=== PATIENT | male | born 1965 | race Caucasian/White ===

== ENCOUNTER 2017-03-25 05:48 | Inpatient (IN) | payer OTHER ==
[2017-03-25] VITALS (9 sets, daily range): BP systolic 92–120; BP diastolic 62–87
--- NOTE | 2017-03-25 06:30 | NUR ---
MS RN INITIAL NOTES PT ARRIVED TO UNIT FOR LEFT KNEE SX. AMBULATORY. A/O X4 ABLE TO MAKE NEEDS KNOWN. NO SIGNS OF SOB OR DISTRESS. BREATHING EVENLY AND UNLABORED ON RA. CONSENTS FOR SURGERY OBTAINED. SURGICAL PREP ENDORSED TO DAY SHIFT. BED IS IN LOW AND LOCKED POSITION, CALL LIGHT WITHIN REACH. WILL ENDORSE TO DAYSHIFT
--- NOTE | 2017-03-25 08:00 | NUR ---
m/s coal and ash supervisor: initial assessment received pt in bed awake, a/ox4. pt remains npo, pt for surgery today with dr. larsen for arthrotomy of the left knee with removal of screws proximal tibia. at bedside. will continue to monitor.
--- NOTE | 2017-03-25 08:40 | NUR ---
m/s plate conditioner: notes taken to surgery at this time via bed accompanied by o.r. staff.
[2017-03-25] MEDS ORDERED: HYDROMORPHONE INJ 2 MG/ML DISP.SYRIN ONE (09:29)
[2017-03-25] MEDS ORDERED: BACITRACIN 50000 UNITS/VIAL ONE (09:55)
[2017-03-25] MEDS ORDERED: BUPIVACAINE 0.25% 75 MG/30 ML VIAL ONE (09:55)
[2017-03-25] MEDS ORDERED: HYDROMORPHONE 1 MG/1 ML DISP.SYRIN ONE (10:22)
--- NOTE | 2017-03-25 11:00 | NUR ---
m/s direct mail clerk: notes received pt from recovery room with dx: s/p left knee arthrotomy with removal of screws proximal tibia. junior wrap dressing in place. pt is fwb on lle and pt aware. pt for d'c home this afternoon. vss. afebrile. no c/o pain or any discomfort. no apparent distress noted. on o2 at 1l/min via n/c. will continue to monitor. at bedside.
[2017-03-25] MEDS ORDERED: TICA90TA PO (11:10)
[2017-03-25] MEDS ORDERED: ATOR80TA PO (11:10)
[2017-03-25] MEDS ORDERED: ASPI81TA2 PO (11:10)
[2017-03-25] MEDS ORDERED: LOSA25TA13 PO (11:10)
--- NOTE | 2017-03-25 12:22 | NUR ---
m/s artificial plastic eye maker: notes pt c/o pain (left knee). dr. larsen notified with order to give norco 10/325mg po q4hrs prn. order read back and carried out and acknowledged. radha (pharmacist) notified to verify order.
--- NOTE | 2017-03-25 12:26 | NUR ---
m/s notes c/o /10 left knee pain, medicated with norco 10/325mg po as ordered. remains at bedside. instructed to call for assistance.
[2017-03-25] MEDS ORDERED: HYDROCODONE/APAP 10/325MG 1 EA TABLET PO PRN (12:30)
--- NOTE | 2017-03-25 13:26 | NUR ---
m/s solution professional: notes pt verbalized relief of pain. left lower leg dressing clean and dry. pt for d'c home today. at bedside. will continue to monitor.
--- NOTE | 2017-03-25 14:00 | NUR ---
m/s adoption agent: notes vital signs remains stable. pt met the criteria for discharge home. will d'c pt in an hour. remains at bedside. will continue to monitor.
--- NOTE | 2017-03-25 15:00 | NUR ---
m/s country printer apprentice: d'c instructions pt remains stable, afebrile. vss. discharged instructions with prescriptions given to pt and verbalized understanding. h/l removed with tip intact with no bleeding, no redness, and no swelling noted.
--- NOTE | 2017-03-25 15:18 | NUR ---
m/s zinc miner: discharged discharged home in stable condition via private car accompanied by .
[2017-03-25] MEDS ORDERED: Medication Not On Formulary EA (Atorvastatin Calcium (Lipitor) 80 MG) PO SCH (22:00)
[2017-03-26] MEDS ORDERED: LOSARTAN POTASSIUM 25 MG TABLET PO SCH (09:00)
[2017-03-26] MEDS ORDERED: ASPIRIN 81 MG TAB.CHEW PO SCH (09:00)
== END 2017-03-25 15:33 | disposition home or self-care (01) | DRG 489 ==
LOC: DS 05:48 → MED 05:50
PROVIDERS: ADMIT Specialist; ATTEND Specialist
DX: T84.093A Other mechanical complication of internal left knee prosthesis, initial encounter (principal); E78.5 Hyperlipidemia, unspecified; I10 Essential (primary) hypertension; M65.861 Other synovitis and tenosynovitis, right lower leg; Y92.009 Unspecified place in unspecified non-institutional (private) residence as the place of occurrence of the external cause; Y83.1 Surgical operation with implant of artificial internal device as the cause of abnormal reaction of the patient, or of later complication, without mention of misadventure at the time of the procedure
CPT/HCPCS: 73560-TC; 88300-TC; A4217; A6253; A6402; J0690; J1100; J1170; J2405; J2704; J3490